=== PATIENT | female | born 2000 | race Caucasian/White ===

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

== ENCOUNTER 2021-02-18 21:57 | Emergency (ER) | payer SELFPAY ==
[~2021-02-18 21:57] MED LIST: ACETAMINOPHEN500 M1 PO; BACTRIM DS TAB1 EACH PO; BACTROBAN NASAL1 GM; BENTYL10 MG PO; BIRTH CONTROL; DIFLUCAN150 MG PO; HYDROCODON-ACE1 EAC4 PO; MACROBID100 MG PO; METFORMIN HCL500 MG PO; MOTRIN600 MG PO; NAPROXEN500 MG PO; NORCO 5-325 TA1 EAC1 PO; ONDANSETRON HCL4 MG PO; ONDANSETRON ODT4 MG PO; OXY-IR 5MG5 MG PO; PHENERGAN12.5 M1 PO; PYRIDIUM200 MG PO; TUMS200 MG PO; birth control patch
[2021-02-19 00:49] LABS: BASOPHIL 0.9 % (0-2); EOSINOPHIL 1.9 % (0-5); HCT 34.9 % (37.0-47.0); HGB 11.9 g/dl (12.5-16.0); LYMPHOCYTE 40.7 % (15-48); MCH 28.5 pg (25.0-31.0); MCHC 34.1 g/dL (32.0-36.0); MCV 83.5 fL (78.0-100.0); MONOCYTE 5.4 % (0-12); MPV 10.4 fL (6.0-9.5); NEUTROPHIL 50.7 % (41-80); NRBC 0; PLT 229 K/uL (150-400); RBC 4.18 M/uL (4.20-5.40); RDW 12.6 % (11.5-14.0); WBC 6.8 K/uL (4.0-10.5)
[2021-02-19 01:05] LABS: ALBUMIN 3.8 g/dL (3.4-5.0); BILIRUBIN - TOTAL 0.4 mg/dL (0.2-1.0); BUN/CREAT RATIO (CALC) 13.8 RATIO; CREATININE 0.65 mg/dL (0.51-0.95); GLOBULIN (CALCULATION) 3.2 g/dL; POTASSIUM 3.8 mmol/L (3.5-5.1)
[2021-02-19 01:47] LABS: BILIRUBIN NEGATIVE (NEGATIVE); BLOOD NEGATIVE Ery/uL (NEGATIVE); CLARITY CLEAR (CLEAR); COLOR YELLOW (YELLOW); GLUCOSE (U) NORMAL (NORMAL); LEUKOCYTES NEGATIVE Leu/uL (NEGATIVE); NITRITE NEGATIVE (NEGATIVE); PROTEIN NEGATIVE (NEGATIVE); SPECIFIC GRAVITY >=1.030 (1.001-1.030); UROBILINOGEN 0.2 mg/dL (0.2-1.0); pH 5.5 (5.0-9.0)
[2021-02-19 03:48] LABS: HCG (URINE) SCREEN NEGATIVE (NEGATIVE)
[2021-02-19] MEDS ORDERED: PROTONIX 40MG T40 MG PO (04:04)
== END 2021-02-19 04:07 | disposition home or self-care (01) ==
LOC: FER 21:57
PROVIDERS: Student in an Organized Health Care Education/Training Program
DX: R10.12 Left upper quadrant pain (principal); R10.13 Epigastric pain; R11.2 Nausea with vomiting, unspecified; R19.7 Diarrhea, unspecified; Z90.49 Acquired absence of other specified parts of digestive tract
CPT/HCPCS: 36415; 80053; 81003; 82150; 83690; 84703; 85025; 87339; J2270; J2405; J7030; Q9967

== ENCOUNTER 2021-05-31 15:28 | Emergency (ER) | payer SELFPAY ==
[~2021-05-31 15:28] MED LIST changes: +PROTONIX 40MG T40 MG PO
[2021-05-31 16:27] LABS: BASOPHIL 0.8 % (0-2); EOSINOPHIL 3.3 % (0-5); HCT 36.7 % (37.0-47.0); HGB 12.2 g/dl (12.5-16.0); LYMPHOCYTE 36.7 % (15-48); MCH 27.9 pg (25.0-31.0); MCHC 33.2 g/dL (32.0-36.0); MCV 83.8 fL (78.0-100.0); MONOCYTE 5.4 % (0-12); MPV 10.1 fL (6.0-9.5); NEUTROPHIL 53.1 % (41-80); NRBC 0; PLT 263 K/uL (150-400); RBC 4.38 M/uL (4.20-5.40); RDW 12.7 % (11.5-14.0); WBC 6.1 K/uL (4.0-10.5)
[2021-05-31 16:27] LABS: BILIRUBIN NEGATIVE (NEGATIVE); BLOOD 2+ Ery/uL (NEGATIVE); CLARITY CLEAR (CLEAR); COLOR YELLOW (YELLOW); GLUCOSE (U) NORMAL (NORMAL); LEUKOCYTES TRACE Leu/uL (NEGATIVE); NITRITE NEGATIVE (NEGATIVE); PROTEIN NEGATIVE (NEGATIVE); SPECIFIC GRAVITY 1.025 (1.001-1.030); UROBILINOGEN 0.2 mg/dL (0.2-1.0); pH 5.5 (5.0-9.0)
[2021-05-31 16:32] LABS: BACTERIA 2+
[2021-05-31 16:33] LABS: AMPHETAMINES NEGATIVE (NEGATIVE); BARBITURATES NEGATIVE (NEGATIVE); ECSTASY (MDMA) NEGATIVE (NEGATIVE); MARIJUANA (THC) NEGATIVE (NEGATIVE); METHADONE NEGATIVE (NEGATIVE); OPIATES NEGATIVE (NEGATIVE); OXYCODONE NEGATIVE (NEGATIVE)
[2021-05-31 16:51] LABS: ALBUMIN 3.9 g/dL (3.4-5.0); BILIRUBIN - TOTAL 0.5 mg/dL (0.2-1.0); BUN/CREAT RATIO (CALC) 19.4 RATIO; CREATININE 0.67 mg/dL (0.51-0.95); GLOBULIN (CALCULATION) 3.3 g/dL; TOTAL PROTEIN 7.2 g/dL (6.4-8.2)
[2021-05-31] MEDS ORDERED: BACTRIM DS TAB1 EACH PO (18:25)
== END 2021-05-31 19:16 | disposition home or self-care (01) ==
LOC: FER 15:28
PROVIDERS: Emergency Medicine; Nurse Practitioner Family
DX: N39.0 Urinary tract infection, site not specified (principal); K21.9 Gastro-esophageal reflux disease without esophagitis; Z90.89 Acquired absence of other organs; Z88.5 Allergy status to narcotic agent
CPT/HCPCS: 36415; 80053; 80305; 81001; 82150; 83690; 85025; 96372; J0696; J1885; J2405; J7030; Q9967

== ENCOUNTER 2021-08-08 15:25 | Emergency (ER) | payer OTHER ==
[~2021-08-08] VITALS: Ht 152.4 cm; Wt 72.6 kg
[2021-08-08] MEDS ORDERED: XULANE PATCH1 EACH TOP (16:10)
[2021-08-08] MEDS ORDERED: METFORMIN HCL500 M3 PO (16:11)
[2021-08-08 16:39] LABS: BASOPHIL 0.9 % (0-2); EOSINOPHIL 2.4 % (0-5); HCT 43.5 % (37.0-47.0); HGB 14.2 g/dl (12.5-16.0); LYMPHOCYTE 37.5 % (15-48); MCH 27.4 pg (25.0-31.0); MCHC 32.6 g/dL (32.0-36.0); MONOCYTE 5.7 % (0-12); MPV 10.2 fL (6.0-9.5); NEUTROPHIL 52.8 % (41-80); NRBC 0; PLT 280 K/uL (150-400); RBC 5.18 M/uL (4.20-5.40); RDW 12.4 % (11.5-14.0); WBC 7.6 K/uL (4.0-10.5)
[2021-08-08 16:46] LABS: BILIRUBIN NEGATIVE (NEGATIVE); BLOOD 2+ Ery/uL (NEGATIVE); CLARITY CLEAR (CLEAR); COLOR YELLOW (YELLOW); GLUCOSE (U) NORMAL (NORMAL); LEUKOCYTES NEGATIVE Leu/uL (NEGATIVE); NITRITE NEGATIVE (NEGATIVE); PROTEIN NEGATIVE (NEGATIVE); SPECIFIC GRAVITY 1.015 (1.001-1.030); UROBILINOGEN 0.2 mg/dL (0.2-1.0)
[2021-08-08 16:49] LABS: BACTERIA TRACE
[2021-08-08 16:59] LABS: ALBUMIN 4.8 g/dL (3.4-5.0); BILIRUBIN - TOTAL 0.4 mg/dL (0.2-1.0); BUN/CREAT RATIO (CALC) 14.3 RATIO; CREATININE 0.7 mg/dL (0.51-0.95); GLOBULIN (CALCULATION) 3.7 g/dL; TOTAL PROTEIN 8.5 g/dL (6.4-8.2)
[2021-08-08] MEDS ORDERED: PHENERGAN25 M1 PO (17:45)
[2021-08-08] MEDS ORDERED: BENTYL10 MG PO (17:45)
== END 2021-08-08 18:05 | disposition home or self-care (01) ==
LOC: FER 15:25
PROVIDERS: Emergency Medicine
DX: K58.1 Irritable bowel syndrome with constipation (principal); F17.290 Nicotine dependence, other tobacco product, uncomplicated; Z88.6 Allergy status to analgesic agent
CPT/HCPCS: 36415; 76705; 80053; 81001; 85025

== ENCOUNTER 2022-06-10 16:03 | Emergency (ER) | payer OTHER ==
[~2022-06-10 16:03] MED LIST changes: +METFORMIN HCL500 M3 PO; +PHENERGAN25 M1 PO; +XULANE PATCH1 EACH TOP
[2022-06-10 17:13] LABS: BASOPHIL 0.5 % (0-2); BILIRUBIN NEGATIVE (NEGATIVE); BLOOD NEGATIVE Ery/uL (NEGATIVE); CLARITY CLEAR (CLEAR); COLOR YELLOW (YELLOW); EOSINOPHIL 2.8 % (0-5); GLUCOSE (U) NORMAL (NORMAL); HCT 39.7 % (37.0-47.0); HGB 13.3 g/dl (12.5-16.0); LEUKOCYTES TRACE Leu/uL (NEGATIVE); LYMPHOCYTE 25.2 % (15-48); MCH 27.5 pg (25.0-31.0); MCHC 33.5 g/dL (32.0-36.0); MCV 82.2 fL (78.0-100.0); MONOCYTE 5.6 % (0-12); MPV 10.2 fL (6.0-9.5); NEUTROPHIL 65.2 % (41-80); NITRITE NEGATIVE (NEGATIVE); NRBC 0; PLT 214 K/uL (150-400); PROTEIN NEGATIVE (NEGATIVE); RBC 4.83 M/uL (4.20-5.40); RDW 12.2 % (11.5-14.0); SPECIFIC GRAVITY 1.015 (1.001-1.030); UROBILINOGEN 0.2 mg/dL (0.2-1.0); WBC 5.7 K/uL (4.0-10.5)
[2022-06-10 17:20] LABS: BACTERIA 1+
[2022-06-10 17:29] LABS: ALBUMIN 4.1 g/dL (3.4-5.0); BILIRUBIN - TOTAL 0.3 mg/dL (0.2-1.0); BUN/CREAT RATIO (CALC) 12.3 RATIO; CREATININE 0.73 mg/dL (0.51-0.95); GLOBULIN (CALCULATION) 3.6 g/dL; TOTAL PROTEIN 7.7 g/dL (6.4-8.2)
[2022-06-10 17:50] LABS: CORONAVIRUS 2019 SARS-COV-2 NEGATIVE (NEGATIVE); INFLUENZA A NAA NEGATIVE (NEGATIVE)
== END 2022-06-10 21:21 | disposition left against medical advice (07) ==
LOC: FER 16:03
PROVIDERS: Nurse Practitioner Family
DX: K21.9 Gastro-esophageal reflux disease without esophagitis (principal); F17.290 Nicotine dependence, other tobacco product, uncomplicated; Z53.29 Procedure and treatment not carried out because of patient's decision for other reasons; Z20.822 Contact with and (suspected) exposure to COVID-19; Z28.310 Unvaccinated for COVID-19
CPT/HCPCS: 36415; 80053; 81001; 82270; 85025; 87088; J1885; J2405; J7030; Q9967; U0002